=== PATIENT | male | born 1935 ===

== ENCOUNTER 2021-08-09 13:07 | Day surgery (SDC) | payer MEDICARE, OTHER ==
[~2021-08-09] VITALS: Ht 175.3 cm; Wt 87.6 kg
[2021-08-09] VITALS (9 sets, daily range): BP systolic 110–137; BP diastolic 55–80; PULSE 61–70; TEMP 97.8
[2021-08-09] MEDS ORDERED: AMOXICILLIN 8751 TAB PO (13:34)
[2021-08-09] MEDS ORDERED: FLOMAX 0.40.4 MG/CAP PO (13:35)
[2021-08-09] MEDS ORDERED: PROTONIX 40MG T40 MG PO (13:36)
[2021-08-09] MEDS ORDERED: OMEGA-31 SGL PO (13:37)
--- NOTE | 2021-08-09 15:40 | NUR ---
1515 PATIENT ARRIVES TO [facility] VIA CART. PATIENT AMBULATED TO CHAIR WITH 1:1 ASSIST. VSS. ENCOURAGE PATIENT TO SLEEP AND TRY TO RELAX. PATIENT'S FAMILY AT CHAIRSIDE. WARM BLANKET GIVEN FOR COMFORT. WILL CONTINUE TO MONITOR. 1530 PATIENT AWAKENS EASILY. REPORTS FEELING TIRED. ALSO REPORTS MILD PAIN TO [facility]. DENIES NEED FOR PAIN MED. WILL CONTINUE TO MONITOR.
--- NOTE | 2021-08-09 17:06 | NUR ---
1700 PATIENT ALERT. VSS. WARM BLANKET GIVEN FOR COMDFORT. PATIENT REPORTS THAT ABDOMINAL PAIN IS UNCHANGED. DENIES NEED FOR AIN MEDICATION.
--- NOTE | 2021-08-09 17:11 | NUR ---
1711 REPORT AND CARE OF PATIENT GIVEN TO GERMAN CANELA.
--- NOTE | 2021-08-09 19:10 | NUR ---
1711 Hand-off report received from GERMAN Rowe. Visit with pt and family in [facility]. Pt states he has a mild amount of pain that has slightly improved over his stay, and he states he doesn't have any nausea or any other complications. 1725 Discharge instructions given to pt and family members. All questions answered to their satisfaction. Handed to them are a thank you card and discharge information. Pt understands he'll plan to return in 4 weeks to get the stent out. Pt to wait until [address] Mcrae. 1750 Pt ambulates with RN and his assisting to restroom to urinate. Pt's remains in restroom with pt. 175 Pt ambulates back to [facility] with assisting. 1800 Pt and family continue to do well with no complications. GERMAN Camarena present to assist with pt care. 1910 Pt transferred out of hospital via wheelchair and GERMAN Camarena, to private vehicle driven by family.
== END 2021-08-09 19:10 | disposition home or self-care (01) ==
LOC: SDCO 13:07
DX: K80.50 Calculus of bile duct without cholangitis or cholecystitis without obstruction (principal); K86.89 Other specified diseases of pancreas; K31.9 Disease of stomach and duodenum, unspecified; K21.9 Gastro-esophageal reflux disease without esophagitis; M19.90 Unspecified osteoarthritis, unspecified site; N40.0 Benign prostatic hyperplasia without lower urinary tract symptoms; Z79.899 Other long term (current) drug therapy
CPT/HCPCS: C1769; C2625; J2405; J2704; J3010; J7120; Q9967

== ENCOUNTER 2021-09-17 13:41 | Day surgery (SDC) | payer MEDICARE, OTHER ==
[~2021-09-17] VITALS: Ht 175.3 cm; Wt 87.6 kg
[~2021-09-17 13:41] MED LIST: AMOXICILLIN 8751 TAB PO; FLOMAX 0.40.4 MG/CAP PO; OMEGA-31 SGL PO; PROTONIX 40MG T40 MG PO
[2021-09-17 14:07] VITALS: BP 134/77; PULSE 80; TEMP 97.4
[2021-09-17 15:05] VITALS: BP 111/76; PULSE 71; TEMP 97.7
--- NOTE | 2021-09-17 15:05 | NUR ---
Patient is drowsy but alert. He was assisted ambulating from his cart to the chair. Verbal report obtained. Vitals obtained. The patient states he was not ready for a drink yet. Call cheek is at bedside within reach.
[2021-09-17 15:20] VITALS: BP 116/77; PULSE 67
--- NOTE | 2021-09-17 15:20 | NUR ---
Patient is tolerating ice water well. Denies discomfort and neusea. Vitals obtained.
[2021-09-17 15:35] VITALS: BP 133/73; PULSE 61
--- NOTE | 2021-09-17 15:50 | NUR ---
stated that the patient does not need to eat anything before leaving the facility.
--- NOTE | 2021-09-17 16:15 | NUR ---
IV was discontinued at this time. Catheter tip intact. Pressure dressing applied. No redness or swelling noted. Discharge instructions and educational material was reviewed with the patient and his . The patient and his verbalized understanding and denied having any further questions. The patient signed the related paperwork, and denied needing assistance changing into his personal clothes. Loni, their daughter was called and is driving over.
--- NOTE | 2021-09-17 16:50 | NUR ---
Patient was escorted out via wheelchair to the patient entrence by GERMAN Rowe. His has the discharge information packet and the patients personal belongings. The patient was transferred into the care of their daughter Loni, who is present to drive.
== END 2021-09-17 16:35 | disposition home or self-care (01) ==
LOC: SDCO 13:41
DX: K80.50 Calculus of bile duct without cholangitis or cholecystitis without obstruction (principal); K83.8 Other specified diseases of biliary tract; R79.89 Other specified abnormal findings of blood chemistry; K21.9 Gastro-esophageal reflux disease without esophagitis; K31.9 Disease of stomach and duodenum, unspecified; Z79.899 Other long term (current) drug therapy
CPT/HCPCS: C1769; J2704; J7120; Q9967